=== PATIENT | male | born 1970 | race Caucasian/White ===

== ENCOUNTER 2017-11-02 08:40 | Inpatient (IN) | payer BC ==
[~2017-11-02] VITALS: Ht 182.9 cm; Wt 163.3 kg
[2017-11-02] MEDS ORDERED: ASPIRIN 325 MG TABLET ONE (09:10)
[2017-11-02 09:20] LABS: BASOPHILS # (AUTO) 0.1 /CMM (0.0-0.2); BASOPHILS % (AUTO) 1.4 % (0.0-2.0); EOSINOPHILS % (AUTO) 1.9 % (0.0-6.0); HEMATOCRIT 40 % (39-51); HEMOGLOBIN 13.1 g/dL (13.5-17.5); LYMPHOCYTES # (AUTO) 1.1 /CMM (0.8-4.8); LYMPHOCYTES % (AUTO) 14.7 % (20.0-44.0); MEAN CORPUSCULAR HGB CONC 33 g/dl (31.0-36.0); MEAN CORPUSCULAR VOLUME 87 fL (80-96); MONOCYTES # (AUTO) 0.4 /CMM (0.1-1.30); MONOCYTES % (AUTO) 4.8 % (2.0-12.0); NEUTROPHILS # (AUTO) 6.1 /CMM (1.8-8.9); NEUTROPHILS % (AUTO) 77.2 % (43.0-81.0); PLATELET COUNT (AUTO) 282 /CMM (150-450); RDW COEFFICIENT OF VARIATION 13.3 (11.5-15.0); RED BLOOD CELL COUNT(AUTO) 4.52 MIL/uL (4.5-6.0); WHITE BLOOD COUNT (AUTO) 7.8 K/uL (4.3-11.0)
[2017-11-02 09:27] LABS: CALCIUM, SERUM 8.2 mg/dL (8.5-10.1); CREATININE 1.3 mg/dL (0.6-1.3); POTASSIUM 3.8 mmol/L (3.5-5.1)
[2017-11-02] MEDS ORDERED: ASPIRIN 325 MG TABLET PO ONE (09:30)
[2017-11-02 09:36] LABS: TROPONIN I 0.13 ng/mL (0.00-0.056)
[2017-11-02 09:40] LABS: ALBUMIN 3.4 g/dL (3.4-5.0); BILIRUBIN,DIRECT 0.2 mg/dL (0.0-0.2); BILIRUBIN,TOTAL 0.7 mg/dL (0.2-1.0); TOTAL PROTEIN, SERUM 6.9 g/dL (6.4-8.2)
[2017-11-02 09:42] LABS: INR 1.09 (0.87-1.13)
[2017-11-02] MEDS ORDERED: FUROSEMIDE 40 MG/4 ML VIAL ONE (09:58)
[2017-11-02] MEDS ORDERED: FUROSEMIDE 40 MG/4 ML VIAL IV ONE (10:00)
[2017-11-02] MEDS ORDERED: ENOXAPARIN SODIUM 40 MG/0.4 ML DISP.SYRIN SQ SCH (10:30)
[2017-11-02] MEDS ORDERED: ZOLPIDEM TARTRATE 5 MG TABLET PO PRN (10:30)
[2017-11-02] MEDS ORDERED: Z GUARD REMEDY 2 OZ OINT TP PRN (10:30)
[2017-11-02] MEDS ORDERED: ACETAMINOPHEN 325 MG TABLET PO PRN (10:30)
[2017-11-02] MEDS ORDERED: HYDROCODONE/APAP 5/325MG 1 EACH TABLET PO PRN (10:30)
[2017-11-02] MEDS ORDERED: MAGNESIUM HYDROXIDE 30 ML UDC PO PRN (10:30)
[2017-11-02] MEDS ORDERED: MAG HYDROX/AL HYDROX/SIMETH 30 ML UDC PO PRN (10:30)
[2017-11-02] MEDS ORDERED: ONDANSETRON HCL/PF 4 MG/2 ML VIAL IVP PRN (10:30)
[2017-11-02] MEDS ORDERED: NITROGLYCERIN PACKET 1 GM PACKET TOP ONE (10:30)
[2017-11-02] MEDS ORDERED: NITROGLYCERIN PACKET 1 GM PACKET ONE (10:55)
[2017-11-02 13:52] LABS: THYROID STIMULATING HORMONE 1.771 uIU/mL (0.358-3.74)
[2017-11-02] MEDS: METOPROLOL TARTRATE 25 MG TABLET PO SCH ×2 (14:05→17:34)
[2017-11-02] MEDS: VALSARTAN 80 MG TABLET PO SCH (14:06)
[2017-11-02] MEDS: ATORVASTATIN 40 MG TABLET PO SCH (14:07)
[2017-11-02 14:16] LABS: MAGNESIUM 1.7 mg/dL (1.8-2.4); PHOSPHORUS 3.7 mg/dL (2.5-4.9)
[2017-11-02 16:00] VITALS: BP 154/107
[2017-11-02 16:06] VITALS: BP 165/84
[2017-11-02] MEDS: RIVAROXABAN 10 MG TABLET PO SCH (17:36)
[2017-11-02 20:00] VITALS: BP 137/98
[2017-11-02 22:00] VITALS: BP 137/98
[2017-11-02 23:53] VITALS: BP 141/88
[2017-11-03 03:42] VITALS: BP 131/100
[2017-11-03 04:00] VITALS: BP_SYST 131; BP_SYST 176; BP_DIAS 100; BP_DIAS 104
[2017-11-03 06:12] LABS: BASOPHILS # (AUTO) 0.1 /CMM (0.0-0.2); BASOPHILS % (AUTO) 0.6 % (0.0-2.0); EOSINOPHILS % (AUTO) 2.3 % (0.0-6.0); HEMATOCRIT 38 % (39-51); HEMOGLOBIN 12.7 g/dL (13.5-17.5); LYMPHOCYTES # (AUTO) 1.5 /CMM (0.8-4.8); LYMPHOCYTES % (AUTO) 17.4 % (20.0-44.0); MEAN CORPUSCULAR HGB CONC 33 g/dl (31.0-36.0); MEAN CORPUSCULAR VOLUME 88 fL (80-96); MONOCYTES # (AUTO) 0.5 /CMM (0.1-1.30); NEUTROPHILS # (AUTO) 6.1 /CMM (1.8-8.9); NEUTROPHILS % (AUTO) 73.7 % (43.0-81.0); PLATELET COUNT (AUTO) 273 /CMM (150-450); RDW COEFFICIENT OF VARIATION 14.2 (11.5-15.0); RED BLOOD CELL COUNT(AUTO) 4.32 MIL/uL (4.5-6.0); WHITE BLOOD COUNT (AUTO) 8.3 K/uL (4.3-11.0)
[2017-11-03 06:45] LABS: CALCIUM, SERUM 8.5 mg/dL (8.5-10.1); CREATININE 1.1 mg/dL (0.6-1.3); MAGNESIUM 1.5 mg/dL (1.8-2.4); PHOSPHORUS 4.4 mg/dL (2.5-4.9); POTASSIUM 3.9 mmol/L (3.5-5.1)
[2017-11-03 08:00] VITALS: BP_SYST 152
[2017-11-03 08:30] VITALS: BP_SYST 151; BP_SYST 153; BP_SYST 155; BP_DIAS 101; BP_DIAS 103; BP_DIAS 98
[2017-11-03] MEDS ORDERED: BUMETANIDE INJ 8 MG in IV NS 0.9% 48 ML IV ONE (08:30)
[2017-11-03] MEDS: METOPROLOL TARTRATE 25 MG TABLET PO SCH ×2 (08:55→16:37)
[2017-11-03] MEDS: VALSARTAN 80 MG TABLET PO SCH (08:55)
[2017-11-03] MEDS: ATORVASTATIN 40 MG TABLET PO SCH (08:55)
[2017-11-03] MEDS ORDERED: ASPIRIN 325 MG TABLET PO SCH (09:00)
[2017-11-03] MEDS ORDERED: FUROSEMIDE 40 MG TABLET PO SCH (09:00)
[2017-11-03] MEDS ORDERED: AMLODIPINE BESYLATE 10 MG TABLET PO SCH (09:00)
[2017-11-03] MEDS ORDERED: ERGOCALCIFEROL (VITAMIN D 2) 50,000 UNIT CAPSULE PO SCH (09:00)
[2017-11-03] MEDS ORDERED: POTASSIUM CHLORIDE 20 MEQ TAB.PRT.SR PO SCH (09:00)
[2017-11-03] MEDS ORDERED: FUROSEMIDE 40 MG/4 ML VIAL IV SCH (09:00)
[2017-11-03] MEDS ORDERED: Magnesium 1GM/D5W 100ML PREMIX 100 ML IV SCH (09:20)
[2017-11-03] MEDS: POTASSIUM CHLORIDE 20 MEQ TAB.PRT.SR PO SCH ×3 (09:27→10:32)
[2017-11-03] MEDS: Magnesium 1GM/D5W 100ML PREMIX 100 ML IV SCH ×2 (09:28→10:30)
[2017-11-03] MEDS ORDERED: AMLO10TA6 PO (11:57)
[2017-11-03] MEDS ORDERED: VALS80TA2 PO (11:57)
[2017-11-03] MEDS ORDERED: METO25TA20 PO (11:57)
[2017-11-03] MEDS ORDERED: FURO40TA5 PO (11:57)
[2017-11-03] MEDS ORDERED: RIVA10TA PO (11:57)
[2017-11-03] MEDS ORDERED: ASPI-1169 PO (11:57)
[2017-11-03] MEDS ORDERED: ATOR40TA PO (11:57)
[2017-11-03 16:00] VITALS: BP 109/70
[2017-11-03] MEDS: RIVAROXABAN 10 MG TABLET PO SCH (16:36)
[2017-11-03 16:37] VITALS: BP 157/96
== END 2017-11-03 19:30 | disposition home or self-care (01) | DRG 281 ==
LOC: ER 08:45 → TELE 11:46 → MED 11-03 11:07
PROVIDERS: ADMIT Internal Medicine; ATTEND Internal Medicine
DX: I11.0 Hypertensive heart disease with heart failure (principal); I21.A1 Myocardial infarction type 2; E44.0 Moderate protein-calorie malnutrition; I48.91 Unspecified atrial fibrillation; E66.01 Morbid (severe) obesity due to excess calories; E83.42 Hypomagnesemia; Z68.42 Body mass index [BMI] 45.0-49.9, adult; D63.8 Anemia in other chronic diseases classified elsewhere; G47.33 Obstructive sleep apnea (adult) (pediatric); I50.9 Heart failure, unspecified; R73.9 Hyperglycemia, unspecified
CPT/HCPCS: 36415; 71045-TC; 80048-TC; 80061-TC; 80076-TC; 82306; 83735-TC; 83880; 84100-TC; 84439-TC; 84443-TC; 84484-TC; 85025-TC; 85730-TC; 93307-TC; A4216; A4606; J1940; J3475; J3490; Z7610